=== PATIENT | male | born 1995 | race Caucasian/White ===

== ENCOUNTER 2023-01-17 00:39 | Inpatient (IN) | payer BC, SELFPAY ==
[2023-01-17 01:20] VITALS: BP 125/78; PULSE 68; RESP 14; TEMP 36.1; O2SAT 97
[2023-01-17 01:22] VITALS: BMI 23.0
[2023-01-17] MEDS: hydrOXYzine HCL 25 MG TABLET PO ×2 (02:22→20:29)
[2023-01-17] MEDS: QUEtiapine Fumarate 25 MG TABLET 75 MG PO ×2 (02:22→21:02)
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
[2023-01-17] MEDS: Thiamine HCL 100 MG TABLET PO (09:16)
[2023-01-17] MEDS: Acetaminophen 325 MG TABLET 650 MG PO ×2 (09:19→20:29)
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
[2023-01-17 10:00] VITALS: BP 131/73; PULSE 97; RESP 18; TEMP 36.6; O2SAT 96
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
[2023-01-17] MEDS: Spironolactone 25 MG TABLET 100 MG PO (18:12)
[2023-01-17 19:35] VITALS: BP 113/62; PULSE 80; RESP 18; TEMP 36.1; O2SAT 97
[2023-01-17] MEDS: Loratadine 10 MG TABLET PO (20:29)
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
[2023-01-18 08:45] VITALS: BP 109/58; PULSE 64; RESP 16; TEMP 36; O2SAT 99
[2023-01-18] MEDS: Loratadine 10 MG TABLET PO ×2 (09:07→20:41)
[2023-01-18] MEDS: Spironolactone 25 MG TABLET 100 MG PO ×2 (09:08→16:58)
[2023-01-18] MEDS: Escitalopram Oxalate 5 MG TABLET PO (09:09)
[2023-01-18] MEDS: Thiamine HCL 100 MG TABLET PO (09:09)
[2023-01-18] MEDS: Divalproex Sodium Sprinkles 125 MG CAP.DR.SPR 250 MG PO (09:09)
[2023-01-18] MEDS: buPROPion HCl XL 150 MG TAB.ER.24H PO (09:09)
[2023-01-18] MEDS: Emtricitabin/Tenofovir 200/300 TABLET 1 TAB PO (09:10)
[2023-01-18] MEDS: Folic Acid 1 MG TABLET PO (09:10)
[2023-01-18 09:11] LABS: Alanine Aminotransferase 18 U/L; Albumin Level 3.6 g/dL; Alkaline Phosphatase 47 U/L; Anion Gap 10; Aspartate Amino Transferase 16 U/L; Bilirubin Total 0.3 mg/dL; Blood Urea Nitrogen 14 mg/dL; Calcium 8.9 mg/dL; Carbon Dioxide 25 mmol/L; Chloride 109 mmol/L; Estimated Glomerular Filt Rate > 60; Glucose Fasting 85 mg/dL; Potassium 3.9 mmol/L; Sodium 140 mmol/L; Total Protein 5.7 g/dL
[2023-01-18] MEDS: Acetaminophen 325 MG TABLET 650 MG PO (15:37)
[2023-01-18] MEDS: hydrOXYzine HCL 25 MG TABLET PO (15:41)
[2023-01-18 20:39] VITALS: BP 122/66; PULSE 83; RESP 18; TEMP 36.6; O2SAT 97
[2023-01-18] MEDS: QUEtiapine Fumarate 25 MG TABLET 75 MG PO (20:41)
[2023-01-18] MEDS: Propranolol HCL 20 MG TABLET 60 MG PO (23:16)
[2023-01-19] MEDS: Acetaminophen 325 MG TABLET 650 MG PO (00:10)
[2023-01-19] MEDS: hydrOXYzine HCL 25 MG TABLET PO (00:11)
[2023-01-19 07:25] VITALS: BP 109/70; PULSE 56; RESP 18; TEMP 36.3; O2SAT 97
[2023-01-19] MEDS: Divalproex Sodium Sprinkles 125 MG CAP.DR.SPR 250 MG PO (08:39)
[2023-01-19] MEDS: Thiamine HCL 100 MG TABLET PO (08:40)
[2023-01-19] MEDS: Spironolactone 25 MG TABLET 100 MG PO (08:40)
[2023-01-19] MEDS: Emtricitabin/Tenofovir 200/300 TABLET 1 TAB PO (08:40)
[2023-01-19] MEDS: Loratadine 10 MG TABLET PO (08:40)
[2023-01-19] MEDS: Folic Acid 1 MG TABLET PO (08:40)
[2023-01-19] MEDS: Escitalopram Oxalate 5 MG TABLET PO (08:40)
[2023-01-19] MEDS: buPROPion HCl XL 150 MG TAB.ER.24H PO (08:40)
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
== END 2023-01-19 15:35 | disposition home or self-care (01) | DRG 755 ==
PROVIDERS: Psychiatry & Neurology Psychiatry; Admitting Provider Psychiatry & Neurology Psychiatry; Visit Provider Psychiatry & Neurology Psychiatry
DX: F43.12 Post-traumatic stress disorder, chronic (principal); J45.20 Mild intermittent asthma, uncomplicated; K59.09 Other constipation; Z91.52 Personal history of nonsuicidal self-harm; F64.0 Transsexualism; Z79.899 Other long term (current) drug therapy
CPT/HCPCS: 36415; 80053

== ENCOUNTER → 2023-01-17 00:39 | Outpatient (BNV) | payer BC, SELFPAY | PROVIDERS: Admitting Provider Psychiatry & Neurology Psychiatry; Visit Provider Student in an Organized Health Care Education/Training Program | DX: Z02.2 Encounter for examination for admission to residential institution (principal) | CPT/HCPCS: 99429 ==

== ENCOUNTER → 2023-01-17 00:39 | Outpatient (BNV) | payer SELFPAY | PROVIDERS: Admitting Provider Psychiatry & Neurology Psychiatry; Visit Provider Psychiatry & Neurology Psychiatry | DX: F33.2 Major depressive disorder, recurrent severe without psychotic features (principal); F10.21 Alcohol dependence, in remission; F43.11 Post-traumatic stress disorder, acute; F41.1 Generalized anxiety disorder | CPT/HCPCS: 90792; 99231; 99239 ==